=== PATIENT | female | born 1980 | race Caucasian/White ===

== ENCOUNTER → 2019-02-18 | Outpatient (CLI) | payer OTHER ==
--- NOTE | 2019-02-18 11:10 | US ---
EXAMINATION TYPE: US venous doppler duplex LE RT DATE OF EXAM: 02/18/2019 10:48 AM COMPARISON: NONE CLINICAL HISTORY: R60.0 LOCALIZED EDEMA. Right leg pain and numbness SIDE PERFORMED: Right TECHNIQUE: The lower extremity deep venous system is examined utilizing real time linear array sonog melissa with graded compression, doppler sonography and color-flow sonography. VESSELS IMAGED: External Iliac Vein (EIV) Common Femoral Vein Deep Femoral Vein Greater Saphenous Vein * Femoral Vein Popliteal Vein Small Saphenous Vein * Proximal Calf Veins (* superficial vessels) No compression images done EIV through distal fem vein due to patient unable to tolerate transducer pressure Right Leg: Visualized portions appear negative for DVT IMPRESSION: The visualized portions of the right lower extremity demonstrate no sonographic evidence of deep venous thrombosis. However no compression images were able to be performed of the external il iac vein through the distal femoral vein as the patient could not tolerate transducer pressure.
[2019-02-18 11:44] LABS: ALT 27 U/L (9-52); AST 24 U/L (14-36); African American GFR (CKD) >90 (>60 ml/min/1.73 sqM); Albumin 3.8 g/dL (3.5-5.0); Alkaline Phosphatase 46 U/L (38-126); Amylase 69 U/L (30-110); Anion Gap 4 mmol/L; Bilirubin,Unconjugated 0.3 mg/dL (0.0-1.1); Blood Urea Nitrogen 11 mg/dL (7-17); Calcium 9.3 mg/dL (8.4-10.2); Carbon Dioxide 30 mmol/L (22-30); Chloride 105 mmol/L (98-107); Cholesterol 181 mg/dL (<200); Glucose 72 mg/dL (74-99); HDL Cholesterol 59 mg/dL (40-60); LDL Cholesterol,Calculated 110 mg/dL (0-99); Potassium 4.7 mmol/L (3.5-5.1); Sodium 139 mmol/L (137-145); Total Bilirubin 0.3 mg/dL (0.2-1.3); Total Protein 6.7 g/dL (6.3-8.2); Triglycerides 61 mg/dL (<150)
[2019-02-18 11:57] LABS: Basophils # (A) 0.1 k/uL (0-0.2); Basophils % (A) 2 %; Eosinophils # (A) 0.2 k/uL (0-0.7); Eosinophils % (A) 3 %; HCT 41.6 % (34.0-46.0); HGB 13.8 gm/dL (11.4-16.0); Lymphocytes # (A) 1.9 k/uL (1.0-4.8); Lymphocytes % (A) 25 %; MCH 31.2 pg (25.0-35.0); MCHC 33.1 g/dL (31.0-37.0); MCV 94.2 fL (80.0-100.0); Monocytes # (A) 0.4 k/uL (0-1.0); Monocytes % (A) 6 %; Neutrophils # (A) 4.8 k/uL (1.3-7.7); Neutrophils % (A) 63 %; Platelet Count 268 k/uL (150-450); RBC 4.42 m/uL (3.80-5.40); RDW 12.3 % (11.5-15.5); WBC 7.5 k/uL (3.8-10.6)
[2019-02-18 12:00] LABS: T4, Free (Free Thyroxine) 1.06 ng/dL (0.78-2.19)
[2019-02-18 19:02] LABS: Hemoglobin A1C 5.3 % (4.0-6.0)
== END | disposition home or self-care (01) ==
LOC: RADUSWWP 10:20
PROVIDERS: ATTEND Family Medicine
DX: R60.0 Localized edema (principal); R00.1 Bradycardia, unspecified; Z00.00 Encounter for general adult medical examination without abnormal findings
CPT/HCPCS: 36415; 80053; 80061; 82150; 82248; 83036; 83605; 83690; 84439; 84443; 85025; 93005

== ENCOUNTER → 2019-03-24 | Outpatient (CLI) | payer OTHER | END | disposition home or self-care (01) | LOC: RADUSWWP 12:18 | PROVIDERS: ATTEND Family Medicine | DX: M79.662 Pain in left lower leg (principal); M62.838 Other muscle spasm | CPT/HCPCS: 93922 ==

== ENCOUNTER → 2020-02-29 | Outpatient (CLI) | payer OTHER ==
[2020-02-29 09:22] VITALS: BP 136/79; PULSE 80; RESP 20; TEMP 98.3
--- NOTE | 2020-02-29 11:16 | P.PAINCN ---
History of Present Illness - Reason for Consult Consult date: 02/29/20 - History of Present Illness This is a []-year-old patient referred for chief complaint of pain in the low back. Pain started about 3 years ago where she felt her back give out. After this incident she also says she lost complete feeling in the anterior aspect of her right lower leg. This has been evaluated with nerve conduction study which she said "failed". In general the pain is worse on the right described as sharp stabbing electric-like sensation with radiation to the hips and the anterior thigh. Alleviating factors are heating pad and doing some form of activity. Exacerbating factors include any form of movement including sitting, rising from a seated position and, going up and down stairs. Pain is currently 10 out of 10, at its best and 8 at 10 minutes worst a greater than a 10 out of 10. She lasted physical therapy in July prior to the pandemic and she said this did not help her anyway. 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 She also endorses that lumbar flexion hurts especially when she is trying to tie her shoes. Patient has seen pain management or 5 years ago and notes that the physician there were just do injections on her and not tolerable he was doing. She said she's had sacroiliac joint injections in the past and these did not help. She has never had hip injections in the past that she can remember. Patient has been taking medications from primary care physician including naprosyn with no relief. Patient denies adverse drug effects from medications. Patient also denies new-onset weakness, bowel/bladder incontinence, or any other signs or symptoms of cauda equina syndrome. There are no signs of acute intoxication, and no indications of medication diversion or overuse. In addition to above, 13-point review of systems is also negative for chest pain, shortness of breath, changes in vision, changes in hearing, new onset weakness, abdominal pain, diarrhea, extreme fatigue, malaise, fever, skin changes, homicidal or suicidal ideation, or bowel or bladder incontinence. Physical exam: Vital Signs: Reviewed in EMR GENERAL: Well appearing, in no acute distress PSYCH: Mood and affect is appropriate. Awake, alert, and oriented SKIN: Skin color, texture, turgor normal, no rashes or lesions HEENT: Normocephalic, atraumatic. EOM intact CV: No pedal edema RESP: Respirations are unlabored, no audible wheezing GI: Abdomen non-distended MUSCULOSKELETAL: Bilateral upper and lower extremity strength is normal and symmetric. No atrophy or tone abnormalities are noted. Lumbar spine: Straight leg raising in the sitting position is positive for low back pain. No pain to palpation over the lumbar spine and paraspinous muscles. positive for pain with facet loading and back extension/rotation. Decreased range of motion with pain reproduction Buttocks: pain to palpation over the PSIS, Neal test is positive bilatearlly fo rlow back pain Log roll positive bilaterally FADIR positive bilaterally Extremities: Peripheral joint ROM is decreased and pain limited in bilateral lower extremities. Right lower leg has some discoloration, more red in color Gait: Gait is antalgic NEUR: Bilateral upper and lower extremity coordination and muscle stretch reflexes are physiologic and symmetric. Negative clonus. complete loss of sensation over right lower leg from knee to ankle. Cranial nerves are grossly intact. Imaging: None Assessment: 1. Hip osteoarthritis 2. Spondylosis 3. Fascial pain Plan: 1. Explanation: Diagnoses, prognoses, and multiple treatment options including but not limited to physical therapy, interventional therapies, medication management and surgery were discussed with the patient and all questions were answered to the patient's satisfaction. 2. Investigations: Bilateral hip x-ray 3. Counseling: The patient was counseled for 3 minutes on SMOKING CESSATION, BODY MASS INDEX, EXERCISE. Specifically, the patient was instructed regarding the importance of smoking cessation, weight control, and exercise in the context of both chronic pain and overall health. 4. Procedures: Ordered right hip injection. If this does not help, we can discuss sacroiliac joint injection. 5. Consultations: None 6. Medications: As needed 7. Disposition: For hip injection Past Medical History Additional Past Medical History / Comment(s): LOW BACK PAIN History of Any Multi-Drug Resistant Organisms: None Reported Additional Past Surgical History / Comment(s): BACK INJECTIONS Past Anesthesia/Blood Transfusion Reactions: No Reported Reaction Smoking Status: Current every day smoker - Past Family History Mother Family Medical History: Cancer, Deep Vein Thrombosis (DVT) Additional Family Medical History / Comment(s): SKIN Medications and Allergies Home Medications Medication Instructions Recorded Confirmed Type Naproxen Sodium [Aleve] 440 mg PO HS 02/22/20 02/29/20 History Allergies Allergy/AdvReac Type Severity Reaction Status Date / Time No Known Allergies Allergy Verified 02/29/20 09:06 PQRS Measure Charge Sheet Measure #226: Tobacco Use: Screen & Cessation Intervention: Pt screened for tobacco use AND intervention given Measure #111: Pneumonia Vaccination: Pneumococcal vaccine NOT administered or previously given Measure #412: Opioid Treatment Agreement: No documentation of signed opioid treatment agreement Measure #408: Opioid Therapy Follow-up Evaluation: Patient had NO f/u eval minimum every 3 months during opioid therapy Measure #128: Body Mass Index (BMI) Screening & Follow-up: BMI documented ABOVE normal parameters - f/u documented Measure #131: Pain Assessment & Follow-up: Pain positive & plan documented, Follow-up scheduled Measure #431: Unhealthy Alcohol Use Preventative Care & Scrn: Patient not identified as an unhealthy alcohol user PQRS Narrative: Pain Intensity [Lower Back] 10 Scale Used Numeric (1 - 10) Hx Alcohol Use (MH) No Home Medications: Ambulatory Orders Naproxen Sodium [Aleve] 440 mg PO HS 02/22/20
== END | disposition home or self-care (01) ==
LOC: PNWHC3 09:04
PROVIDERS: ATTEND Anesthesiology
DX: M47.819 Spondylosis without myelopathy or radiculopathy, site unspecified (principal); M16.10 Unilateral primary osteoarthritis, unspecified hip; R51 Headache; Z79.891 Long term (current) use of opiate analgesic
CPT/HCPCS: 99211

== ENCOUNTER 2020-03-22 08:05 | Day surgery (SDC) | payer OTHER ==
[2020-03-21 08:47] VITALS: BMI 39.9
[~2020-03-22 08:05] MED LIST: LACTATED RINGERS 1,000 ML IV SCH
[2020-03-22 08:32] VITALS: RESP 16; TEMP 98.5
[2020-03-22] MEDS ORDERED: LIDOCAINE 1% (10MG/ML) FOR IV START INTRADERMA ONE (08:32)
[2020-03-22] MEDS ORDERED: MIDAZOLAM 2 MG/2 ML VIAL ONE (08:48)
[2020-03-22] MEDS ORDERED: ROPIVACAINE 5MG/ML 20ML VIAL ONE (08:48)
[2020-03-22] MEDS ORDERED: TRIAMCINOLONE ACETONIDE 40 MG/ML 1 ML VIAL ONE (08:48)
[2020-03-22] MEDS ORDERED: fentaNYL (PF) 50 MCG/ML 2 ML AMP ONE (08:48)
--- NOTE | 2020-03-22 09:04 | P.PCN ---
Date of Procedure: 03/22/20 Surgeon: Jeanna Park Pathology: none sent Condition: stable Disposition: PACU Description of Procedure: preoperative /postoperative diagnosis: Greater trochanter bursitis physician:Jeanna Park MD anesthesia local with IV moderate sedation with Versed and fentanyl name of procedure: Right greater trochanter bursa steroid injection under fluoroscopic guidance Description of procedure: The patient was seen in preop holding area consent was obtained then she was brought to the procedure room and placed in the supine position. Skin was prepped with ChloraPrep and draped in a sterile manner. Lidocaine 1% was used to numb the skin up. i then used 22-gauge 5 inch Quincke spinal needle to go through the skin and to contact the bone and the middle of the right greater trochanter using x-ray guidance. I then injected 40 mg of Kenalog with 5 mg of ropivacaine 0.5%. Patient tolerated procedure well. The final picture was saved to thefluoroscopy machine.
[2020-03-22 09:20] VITALS: BP 112/71; PULSE 74
[2020-03-22] MEDS ORDERED: IV FLUID CONTINUATION 1,000 ML IV ONE (09:20)
--- NOTE | 2020-03-22 09:43 | FL ---
EXAMINATION TYPE: FL guided pain mgmt statistic DATE OF EXAM: 03/22/2020 FLUOROSCOPY Fluoroscopy time of 4 seconds was used during right hip bursal injection. 2 image/s document/s the p chava.
== END 2020-03-22 09:27 | disposition home or self-care (01) ==
LOC: ORPAIN 08:05
PROVIDERS: ATTEND Anesthesiology
DX: M70.61 Trochanteric bursitis, right hip (principal)
CPT/HCPCS: 81025; 20610; J2250; J3301; J3010; J2795

== ENCOUNTER → 2020-04-18 | Outpatient (CLI) | payer OTHER ==
[2020-04-18 13:08] VITALS: BP 125/88; PULSE 90; RESP 16; TEMP 97.9
--- NOTE | 2020-04-18 13:36 | P.PN ---
Subjective Progress Note Date: 04/18/20 This is a follow-up visit for this 13 years old female with a chronic history of severe low back pain, in addition to the right lower extremity started 3 years ago, recently we have done the right trochanteric bursa steroid injection she reported that she had no benefit from it, she continued to have severe low back pain mainly on the right side and, radiated to the right lower extremity the pain is constant and increases with any activity interfere with the quality of life, she feels she had some right lower extremity weakness, but she is able to ambulate she denies any fever or night sweats she denies any change in the bowel movement or urination Objective - Vital Signs Vital signs: Vital Signs Temp 97.9 F 04/18/20 12:54 Pulse 90 04/18/20 12:54 Resp 16 04/18/20 12:54 BP 125/88 04/18/20 12:54 Pulse Ox 98 04/18/20 12:54 Intake & Output 04/17/20 04/18/20 04/18/20 18:59 06:59 18:59 Weight 108.862 kg - Exam Physical Examinations : -Constitutiona : Cooperative , not in acute distress . -HEENT : nech : supple , no Lymphadenopathy , normal thyroid size . : eyes : no ptosis , no icterus, no photophobia . - neurologic : Cranial nerve II to XII intact , no focal neurological deffecit . -psychatric : alert , oriented X 3 , appropriate affect , intact judgment and insight . -Lymphatic : no Lymphadenopathy . - musculoskeltal : Lumber spine moter stegnth lower extremities ,thigh and legs 5/5 Right side , 5/5 Left side deep tendon reflexes : normal Knee Jerk , normal ankle Jerk lumber facet Loading Test =positive Right , positive Left Range of motion of the lumbar spine Fl exion 30 degrees, extension 10 degrees strait leg raising test = positive at 45 degree on the right side and is negative on the left side Fabere test= positive Right , and negative LT . Sever tenderness over the Sacroiliac joint on the Right , and negative on the Left sides Gaenslen test= positive right ,and negative on the left . Seated flexion test= positive right ,a nd negative on the Left . Tenderness over the right trochanteric bursa MRI of the lumbar spine= L34 ,L4 5, L5-S1, bulging disc disease and facet degeneration Assessment and Plan Plan: Assessment and plan=1-lumbar radiculopathy. 2-lumbar degenerative disc disease. 3-right sacroiliitis. 4-right trochanteric bursitis. Patient reported that most of her pain in the buttock area, and clinically most of the pain is coming from the right sacroiliac joint, Patient could benefit from right sacroiliac joint steroid injections under fluoroscopy guidance. In the future patient can be good candidate to have lumbar epidural steroid injection - PQRS measures = - Patient's medications are documented in the chart. -Tobacco use is positive, and counseling.Given. -Patient's has not received pneumococcal vaccine. -Advanced care planning discussed, patient not eligible. -Opiate contract signed. -Pain positive and follow-up visit/procedure is scheduled. -Patient's blood pressure measured [ 121/80 ] , and documented in the record ,and patient will follow up with the primary care. -Patient's weight was measured and body mass index [ 39.9 ] above the normal limits and counseling was done. and patient instructed to follow-up with the primary care physician. -Patient was not identified as an unhealthy alcohol user Time with Patient: Less than 30
== END | disposition home or self-care (01) ==
LOC: PNWHC3 12:43
PROVIDERS: ATTEND Specialist
DX: M51.16 Intervertebral disc disorders with radiculopathy, lumbar region (principal); M46.1 Sacroiliitis, not elsewhere classified; M70.61 Trochanteric bursitis, right hip
CPT/HCPCS: 99211

== ENCOUNTER 2020-05-10 06:33 | Day surgery (SDC) | payer OTHER ==
[2020-05-08 15:06] VITALS: BMI 41.1
[2020-05-10 06:55] VITALS: TEMP 97.1
[2020-05-10] MEDS ORDERED: methylPREDNISolone ACETATE 40 MG/ML 1 ML VIAL ONE (07:01)
[2020-05-10] MEDS ORDERED: ROPIVACAINE 5MG/ML 20ML VIAL ONE (07:01)
[2020-05-10] MEDS ORDERED: IOPAMIDOL M200 10 ML VIAL ONE (07:01)
[2020-05-10] MEDS ORDERED: TRIAMCINOLONE ACETONIDE 40 MG/ML 1 ML VIAL ONE (07:01)
--- NOTE | 2020-05-10 07:13 | P.PCN ---
Date of Procedure: 05/10/20 Description of Procedure: Preoperative diagnoses: right sacroilitis Postoperative diagnoses: right sacroilitis. Procedure: right sacroiliac joint steroid injection under fluoroscopic guidance. Surgeon: Rishabh Hood MD Anesthesia: [2 mL of 1% lidocaine and moderate sedation per hospital guidelines] Fluoroscopy was used for the procedure and fluoroscopic images were saved to the radiology portion of the patient's chart. EBL: None Procedure indication: The patient had a history of severe chronic low back pain, diagnosed with sacroiliitis unresponsive to conservative treatment. Procedure description: The patient was seen and identified in the preoperative holding area, risks and benefits and alternative of the procedure and possible complications discussed with the patient, and patient agreed with the preceding, patient signed the consent, an IV was started, and vital signs were monitored and were stable throughout the procedure, patient was placed in the prone position on table and the lumbosacral area was prepped and draped with a sterile fashion, vital signs were closely monitored during the procedure, the fluoroscopy camera was placed in the contralateral oblique view on the right sacroiliac joint and the lower part of the joint was identified . Then the skin and subcutaneous tissue was anesthetized using 2 mL of 1% lidocaine then a 22- gauge Quincke-type spinal needle advanced slowly under fluoroscopy and placed in the posterior and inferior border of the right sacroiliac joint, placement confirmed with AP and lateral view, and after appropriate needle placement confirmed and after negative aspiration for heme, 1 mL of Isovue 200 was injected revealing intra-articular spread. Then a solution consisting of 2 ml of ropivacaine 0.5% and 40 mg of Kenalog injected after negative aspiration, no paresthesia during the injection, no resistance to injection, and the needle was removed. Patient tolerated the procedure well without any complication. The patient was returned to supine position after the back was cleaned and a Band-Aid applied, the patient was transported to recovery room in stable condition and monitored for 30 minutes before being discharged home. The patient will follow up for repeat procedure in 2-4 weeks
[2020-05-10 07:25] VITALS: BP 103/69; PULSE 71; RESP 18
--- NOTE | 2020-05-10 07:30 | FL ---
EXAMINATION TYPE: FL guided pain mgmt statistic DATE OF EXAM: 05/10/2020 CLINICAL HISTORY: Right sacroiliac joint pain. TECHNIQUE: Fluoroscopy. COMPARISON: None. FINDINGS: Fluoroscopic guidance was provided during pain relief procedure performed by Dr. Hood . A total of 0.05 minute of fluoroscopic time was utilized during the procedure and 1 spot images are acquired. Single image acquired shows needle localization at inferior right sacroiliac joint level. IMPRESSION: As Above.
== END 2020-05-10 07:33 | disposition home or self-care (01) ==
LOC: ORPAIN 06:33
PROVIDERS: ATTEND Anesthesiology
DX: G89.29 Other chronic pain (principal); M46.1 Sacroiliitis, not elsewhere classified
CPT/HCPCS: 81025; J1030; Q9966; J2795; G0260; 27096

== ENCOUNTER 2020-06-15 06:34 | Day surgery (SDC) | payer OTHER ==
[2020-06-11 15:38] VITALS: BMI 40.2
[2020-06-15 07:00] VITALS: RESP 16; TEMP 97.4
[2020-06-15] MEDS ORDERED: ROPIVACAINE 5MG/ML 20ML VIAL ONE (07:42)
[2020-06-15] MEDS ORDERED: TRIAMCINOLONE ACETONIDE 40 MG/ML 1 ML VIAL ONE (07:42)
--- NOTE | 2020-06-15 07:51 | P.PCN ---
Date of Procedure: 06/15/20 Surgeon: Jeanna Park Pathology: none sent Condition: stable Disposition: PACU Description of Procedure: Preoperative diagnoses= sacroiliac joint dysfunction and sacroiliitis on the ri ght side Postoperative diagnoses= same as preoperative diagnosis. Procedure= sacroiliac joint steroid injection under fluoroscopic guidance. Anesthesia= local anesthesia with lidocaine 1% only Estimated blood loss=minimal. Procedure indication= the patient had a history of severe chronic low back pain, diagnosed with sacroiliitis and lumbar sacral facet arthropathy unresponsive to conservative treatment. Procedure description= the patient was seen and identified in the preoperative holding area, risks and benefits and alternative of the procedure and possible complications discussed with the patient, patient signed the consent. an IV was started, and vital signs were monitored and were stable throughout the procedure, patient was placed in the prone position or table and the lumbosacral area was prepped and draped with a sterile fashion, vital signs were closely monitored during the procedure.The sacroiliac joint was identified on the AP view of fluoroscopy then the C-arm was tilted to the contralateral oblique position to superimpose the anterior and posterior joint lines on each other and to have a unified joint line with the target point at the inferior one third of this line. I used 22-gauge 3-1/2 inch Quincke spinal needle for this procedure and after getting into the sacroiliac joint I injected 40 mg of Kenalog +2 MLS of Ropivacaine 0.5%. Patient tolerated the procedure well without any complication, The patient returned to supine position after the back was cleaned and a Band- Aid applied, the patient transported to recovery room in stable condition and he was monitored for 30 minutes before she was discharged home in stable condition . patient will follow up with the pain clinic in a few weeks. A copy of the needle placement was saved to the C-arm machine.
[2020-06-15 08:14] VITALS: BP 122/84; PULSE 64
--- NOTE | 2020-06-15 08:20 | FL ---
EXAMINATION TYPE: FL guided pain mgmt statistic DATE OF EXAM: 06/15/2020 CLINICAL HISTORY: Right sacroiliac joint pain. TECHNIQUE: Fluoroscopy. COMPARISON: None. FINDINGS: Fluoroscopic guidance was provided during pain relief procedure performed by Dr. Park . A total of 5 seconds of fluoroscopic time was utilized during the procedure and one spot images are acquired. Single image acquired shows needle localization at the level of sacroiliac joint. IMPRESSION: As Above.
== END 2020-06-15 08:20 | disposition home or self-care (01) ==
LOC: ORPAIN 06:34
PROVIDERS: ATTEND Anesthesiology
DX: M46.1 Sacroiliitis, not elsewhere classified (principal); M53.3 Sacrococcygeal disorders, not elsewhere classified; E66.9 Obesity, unspecified; Z68.41 Body mass index [BMI] 40.0-44.9, adult
CPT/HCPCS: 81025; J3301; J2795; G0260; 27096

== ENCOUNTER → 2020-07-11 | Outpatient (CLI) | payer OTHER ==
[2020-07-11 09:19] VITALS: BP 134/95; PULSE 94; RESP 18; TEMP 98
--- NOTE | 2020-07-11 12:22 | P.PN ---
Subjective Progress Note Date: 07/11/20 This is a follow-up visit for this 39 years old female with a chronic history of severe low back pain with radiation to the right lower extremity started 3 years ago, recently we have done the right trochanteric bursa steroid injection, she reported that she had no benefit from it, and recently we did right-sided sacroiliac joint steroid injection,x2 , she had 50% improvement of her low back pain for 2 days after the first right-sided sacroiliac joint , and she had 0 benefit after the second right-sided sacroiliac joint steroid injection, she continued to have severe low back pain mainly on the radiated to the right lower buttock, the pain is constant and increases with any activity interfere wi th the quality of life, she feels she had some right lower extremity weakness, but she is able to ambulate, she denies any fever or night sweats ,she denies any change in the bowel movement or urination Objective - Vital Signs Vital signs: Vital Signs Temp 98.0 F 07/11/20 09:13 Pulse 94 07/11/20 09:13 Resp 18 07/11/20 09:13 BP 134/95 07/11/20 09:13 Pulse Ox 99 07/11/20 09:13 Intake & Output 07/10/20 07/11/20 07/11/20 18:59 06:59 18:59 Weight 108.862 kg - Exam -Constitutiona : Cooperative , not in acute distress . -HEENT : nech : supple , no Lymphadenopathy , normal thyroid size . : eyes : no ptosis , no icterus, no photophobia . - neurologic : Cranial nerve II to XII intact , no focal neurological deffecit . -psychatric : alert , oriented X 3 , appropriate affect , intact judgment and insight . -Lymphatic : no Lymphadenopathy . - musculoskeltal : Lumber spine moter stegnth lower extremities ,thigh and legs 5/5 Right side , 5/5 Left side deep tendon reflexes : normal Knee Jerk , normal ankle Jerk lumber facet Loading Test =positive Right , negative Left Range of motion of the lumbar spine Flexion 30 degrees, extension 10 degrees strait leg raising test = positive at 45 degree on the right side and is negative on the left side Fabere test= negative bilaterally. Sever tenderness over the Sacroiliac joint on the Right , and negative on the Left sides Gaenslen test= positive right ,and negative on the left . Seated flexion test= positive right ,and negative on the Left . Tenderness over the right trochanteric bursa Assessment and Plan Plan: MRI of the lumbar spine= L3-4 ,L4 5, L5-S1, bulging disc disease and facet degeneration Assessment and Plan Plan: Assessment and plan=1-lumbar radiculopathy. 2-lumbar spondylosis with lumbar facet arthropathy without myelopathy 3-right sacroiliitis. 4-right trochanteric bursitis. Patient had no benefit from right trochanteric bursa steroid injection, patient had no benefit from right sacroiliac joint steroid injection Patient will be good candidate to have diagnostic medial branch block lumbar area on the right side at L2, L3, L4, L5 x2 and possible RFA - PQRS measures = - Patient's medications are documented in the chart. -Tobacco use is negative. -Patient's has not received pneumococcal vaccine. -Advanced care planning discussed, patient not eligible. -Opiate contract not signed. -Pain positive and follow-up visit/procedure is scheduled. -Patient's blood pressure measured [ 134/95 ] , and documented in the record ,and patient will follow up with the primary care. -Patient's weight was measured and body mass index [ 36.9 ] above the normal limits and counseling was done. and patient instructed to follow-up with the primary care physician. -Patient was not identified as an unhealthy alcohol user Time with Patient: Less than 30
== END | disposition home or self-care (01) ==
LOC: PNWHC3 08:57
PROVIDERS: ATTEND Specialist
DX: M47.26 Other spondylosis with radiculopathy, lumbar region (principal); M70.61 Trochanteric bursitis, right hip
CPT/HCPCS: 99211

== ENCOUNTER → 2020-09-03 | Outpatient (CLI) | payer OTHER ==
--- NOTE | 2020-09-03 18:05 | US ---
EXAMINATION TYPE: US abdomen complete DATE OF EXAM: 09/03/2020 COMPARISON: NONE CLINICAL HISTORY: 40-year-old female N83.0 Ovarian cyst, R10.9 right flank pain. TECHNIQUE: Multiple sonographic images of the abdomen are obtained. FINDINGS: EXAM MEASUREMENTS: Liver Length: 17.4 cm Gallbladder Wall: .2 cm CBD: 6 mm Spleen: 9.1 cm Right Kidney: 9.5 x 4.3 x 4.1 cm Left Kidney: 11.0 x 5.3 x 4.9 cm Pancreas: Most of the pancreatic body and the pancreatic tail are secured by bowel gas shadowing. Vi sualized portions show no gross abnormal body. Liver: Borderline enlarged with increased echogenicity and far field attenuation. No focal lesion see n. Gallbladder: No stones seen Evidence for sonographic Coleman's sign: No CBD: upper limits of normal. Spleen: wnl Right Kidney: No hydronephrosis Left Kidney: No hydronephrosis Upper IVC: wnl Abd Aorta: wnl IMPRESSION: 1. Borderline hepatomegaly (17.4 cm) with at least moderate hepatic steatosis. 2. No gallstones. The bile duct is borderline dilated at 6 mm. Correlate with alkaline phosphatase an d bilirubin levels to exclude early biliary obstruction.
--- NOTE | 2020-09-03 18:07 | US ---
EXAMINATION TYPE: US pelvis complete transvag DATE OF EXAM: 09/03/2020 COMPARISON: NONE CLINICAL HISTORY: 40-year-old female N83.0 Ovarian cyst, R10.9 right flank pain. TECHNIQUE: Transvaginal (TV) and Transabdominal (TA) . FINDINGS: EXAM MEASUREMENTS: Uterus: 8.2 x 3.7 x 5.3 cm Endometrial Stripe: 1.2 cm Right Ovary: 3.4 x 2.3 x 3.1 cm Left Ovary: 3.0 x 1.6 x 2.0 cm 1. Uterus: Anteverted. Nabothian cysts seen measuring up to 6 mm. 2. Endometrium: wnl 3. Right Ovary: Cystic area seen 2.6 x 1.8 x 2.6cm 4. Left Ovary: Follicular change. 5. Bilateral Adnexa: wnl 6. Posterior cul-de-sac: wnl IMPRESSION: 1. Endometrial stripe measuring 1.2 cm which correspond to the secretory phase of menstrual cycle. Cl inically correlate. 2. A 2.6 cm dominant follicle or functional cyst within the right ovary. 3. No pelvic free fluid.
== END | disposition home or self-care (01) ==
LOC: RADUSWWP 14:20
PROVIDERS: ATTEND Family Medicine
DX: N83.201 Unspecified ovarian cyst, right side (principal)
CPT/HCPCS: 76700; 76830; 76856

== ENCOUNTER → 2020-09-19 | Outpatient (CLI) | payer OTHER ==
--- NOTE | 2020-09-19 10:53 | NM ---
EXAMINATION TYPE: NM hepatobiliary w EF DATE OF EXAM: 09/19/2020 COMPARISON: Ultrasound abdomen September 03, 2020 HISTORY: Epigastric pain. Heartburn and reflux-like symptoms. TECHNIQUE: After the intravenous administration of 4.9 mCi Tc 99m Mebrofenin hepatobiliary scintigrap hy is performed. Immediate images post injection. FINDINGS: There is satisfactory initial accumulation of tracer by the liver. The gallbladder is visualized wit hin 16 minutes. The small bowel activity is not well seen even after 60. At one hour 8 ounces of or al ensure plus is given to mimic CCK and gallbladder ejection fraction is calculated at 77 %, in the normal range. Therefore there is no scintigraphic evidence of cystic or common bile duct obstruction to suggest acute cholecystitis or gallbladder dyskinesia. IMPRESSION: Exam is within normal limits.
== END | disposition home or self-care (01) ==
LOC: RADNMMAIN 06:47
PROVIDERS: ATTEND Family Medicine
DX: R10.13 Epigastric pain (principal)
CPT/HCPCS: 78226; A9537

== ENCOUNTER → 2020-10-15 | Outpatient (CLI) | payer OTHER ==
--- NOTE | 2020-10-15 13:00 | XR ---
EXAMINATION TYPE: XR chest 2V DATE OF EXAM: 10/15/2020 COMPARISON: NONE HISTORY: Chest pain TECHNIQUE: Frontal and lateral views of the chest are obtained. FINDINGS: There is no focal air space opacity. No evidence for pneumothorax. No pleural effusion. The cardiac silhouette size is within normal limits. The osseous structures are grossly intact. IMPRESSION: 1. No acute cardiopulmonary process.
== END | disposition home or self-care (01) ==
LOC: RADXRMAIN 12:34
PROVIDERS: ATTEND Family Medicine
DX: R07.9 Chest pain, unspecified (principal)
CPT/HCPCS: 71046; 93005

== ENCOUNTER → 2021-09-06 | Outpatient (CLI) | payer OTHER ==
[2021-09-06 18:14] LABS: Basophils # (A) 0.07 X 10*3/uL (0.00-0.10); Basophils % (A) 0.7 %; Eosinophils # (A) 0.27 X 10*3/uL (0.04-0.35); Eosinophils % (A) 2.6 %; HCT 39.6 % (37.2-46.3); HGB 12.9 g/dL (12.0-15.0); Immature Grans, Automated 0.3 %; Lymphocytes # (A) 2.79 X 10*3/uL (0.90-5.00); Lymphocytes % (A) 26.9 %; MCH 31.3 pg (27.0-32.0); MCHC 32.6 g/dL (32.0-37.0); MCV 96.1 fL (80.0-97.0); Mean Platelet Volume 10.1 fL (9.5-12.2); Monocytes # (A) 0.74 X 10*3/uL (0.20-1.00); Monocytes % (A) 7.1 %; NRBC Per 100 WBC 0 /100 WBCS (0.0-0.0); Neutrophils # (A) 6.49 X 10*3/uL (1.80-7.70); Neutrophils % (A) 62.4 %; Platelet Count 313 X 10*3/uL (140-440); RBC 4.12 X 10*6/uL (4.10-5.20); RDW 12.6 % (11.5-14.5); WBC 10.39 X 10*3/uL (4.50-10.00)
== END | disposition home or self-care (01) ==
LOC: LABPAT 11:08
PROVIDERS: ATTEND Obstetrics & Gynecology
DX: Z01.812 Encounter for preprocedural laboratory examination (principal)
CPT/HCPCS: 85025

== ENCOUNTER → 2021-09-18 | Outpatient (CLI) | payer OTHER ==
--- NOTE | 2021-09-18 14:17 | MM ---
Reason for exam: additional evaluation requested from abnormal screening. Last mammogram was performed less than 1 month ago. History: Family history of breast cancer in maternal grandmother. Physical Findings: A clinical breast exam by your physician is recommended on an annual basis and results should be correlated with mammographic findings. MG Work Up Mamm w CAD RT Spot compression CC, CCRM, and spot compression LM view(s) were taken of the right breast. Prior study comparison: September 12, 2021, bilateral MG screening mammo w CAD. There are scattered fibroglandular densities. Density partially compresses as suspicious distortion. Rolled view. No suspicious mass. Results were given to the patient verbally at the time of the exam. ASSESSMENT: Probably benign, BI-RAD 3 RECOMMENDATION: Follow-up diagnostic mammogram of the right breast in 6 months.
== END | disposition home or self-care (01) ==
LOC: RADMAMWWP 13:34
PROVIDERS: ATTEND Obstetrics & Gynecology
DX: R92.8 Other abnormal and inconclusive findings on diagnostic imaging of breast (principal); Z80.3 Family history of malignant neoplasm of breast
CPT/HCPCS: 77065

== ENCOUNTER → 2022-08-20 | Outpatient (CLI) | payer OTHER ==
--- NOTE | 2022-08-21 07:11 | US ---
EXAMINATION TYPE: US thyroid st tissue head/neck DATE OF EXAM: 08/20/2022 COMPARISON: NONE CLINICAL HISTORY: R22.1 LOCALIZED SWELLING, MASS AND LUMP, NECK. Right superior shoulder palpable lum p, no longer felt on today's exam. Technique: Grayscale imaging of the area of palpable abnormality in the right shoulder. FINDINGS: In area of prior palpable lump, right superior shoulder soft tissue, no abnormalities visualized. Co mparison made to contralateral left shoulder soft tissue. IMPRESSION: No suspicious masses or organizing fluid collections in the area of palpable abnormality. No finding to correlate with palpable abnormality.
== END | disposition home or self-care (01) ==
LOC: RADUSWWP 16:07
PROVIDERS: ATTEND Family Medicine
DX: R22.1 Localized swelling, mass and lump, neck (principal)
CPT/HCPCS: 76536

== ENCOUNTER → 2023-10-01 | Outpatient (CLI) | payer OTHER ==
--- NOTE | 2023-10-05 08:34 | MM ---
Reason for Exam: Screening (asymptomatic). Last mammogram was performed 2 year(s) and 0 month(s) ago. Patient History: Menarche at age 11. First Full-Term at age 20. Premenopausal. Maternal grandmother had breast cancer, age 50. Risk Values: Rosie 5 year model risk: 0.7%. NCI Lifetime model risk: 8.7%. Prior Study Comparison: 09/12/2021 Bilateral Screening Mammogram, LOCATED WITHIN [facility]. 09/18/2021 Right Diagnostic Mammogram, LOCATED [facility]IN [facility]. Tissue Density: The breasts are heterogeneously dense, which may obscure small masses. Findings: Analyzed By CAD. Right breast: There is no suspicious group of microcalcifications or new suspicious mass. Left breast: There is no suspicious group of microcalcifications or new suspicious mass. Overall Assessment: Negative, BI-RAD 1 Management: Screening Mammogram of both breasts in [address] [facility] will attempt to contact patient to return for supplemental views and ultrasound if indicated. Patient should continue monthly self-breast exams. A clinical breast exam by your physician is recommended on an annual basis. This exam should not preclude additional follow-up of suspicious palpable abnormalities. Note on Rosie scores and lifetime risk: 1. A Rosie score greater than 3% is considered moderate risk. If this is the case, consider specialist referral to assess eligibility for a risk reducing agent. 2. If overall lifetime risk for the development of breast cancer is 20% or higher, the patient may qualify for future screening with alternating mammogram and breast MRI. Electronically signed and approved by: Quang Quiros DO
== END | disposition home or self-care (01) ==
LOC: RADMAMWWP 15:06
PROVIDERS: ATTEND Family Medicine
DX: Z12.31 Encounter for screening mammogram for malignant neoplasm of breast (principal); Z80.3 Family history of malignant neoplasm of breast
CPT/HCPCS: 77067

== ENCOUNTER → 2023-12-22 | Outpatient (CLI) | payer OTHER ==
--- NOTE | 2023-12-22 14:24 | XR ---
EXAMINATION TYPE: XR sacrum coccyx DATE OF EXAM: 12/22/2023 CLINICAL HISTORY: pain TECHNIQUE: Three views of the sacrum and coccyx are submitted. COMPARISON: None Sacral alae appear symmetric. No evidence for fracture or bony lesion. Sacroiliac joints are within normal limits. Visualized coccygeal segments are free of fracture or lesion. IMPRESSION: Normal study
== END | disposition home or self-care (01) ==
LOC: RADXRMAIN 13:38
PROVIDERS: ATTEND Family Medicine
DX: M53.3 Sacrococcygeal disorders, not elsewhere classified (principal)
CPT/HCPCS: 72220